=== PATIENT | male | born 1990 | race Hispanic/Latino ===

== ENCOUNTER 2019-08-17 11:05 | Emergency (ER) | payer MEDICAID ==
[2019-08-17] MEDS ORDERED: SODIUM CHLORIDE 0.9% 1000ML 1,000 ML IV ONE (12:14)
== END 2019-08-17 13:02 | disposition home or self-care (01) ==
LOC: EDH 11:05
DX: F14.10 Cocaine abuse, uncomplicated (principal); F41.1 Generalized anxiety disorder
CPT/HCPCS: 36415; 71045; 80053; 80305; 82550; 84484; 85025; 93005; 99285; J7030